=== PATIENT | female | born 1980 | race Hispanic/Latino ===

== ENCOUNTER 2016-08-06 05:26 | Day surgery (SDC) | payer OTHER ==
[~2016-08-06] VITALS: Ht 157.5 cm; Wt 98.5 kg
[2016-08-06] VITALS (11 sets, daily range): BP systolic 110–125; BP diastolic 54–75; PULSE 69–89; RESP 14–22; O2SAT 97–100
[2016-08-06] MEDS: Lactated Ringer's 1,000 ML IV SCH ×5 (05:00→17:57)
[~2016-08-06 05:26] MED LIST: CeFAZolin Inj 2 GM in IV Premix 1 EACH IV SCH; DESO1TAB54 PO; LEVO25TA5 PO
[2016-08-06] MEDS ORDERED: Lidocaine PF 1% 30 mL Inj ONE (05:27)
[2016-08-06] MEDS ORDERED: Propofol 10,000 mCg/mL 20 mL Inj ONE (05:27)
[2016-08-06] MEDS ORDERED: Rocuronium 10 mg/mL 5 mL Inj ONE (05:27)
[2016-08-06] MEDS ORDERED: Morphine PF 1 mg/mL 10 mL Inj ONE (05:27)
[2016-08-06] MEDS ORDERED: Succinylcholine Chloride 20 mg/mL 5 mL Inj ONE (05:27)
[2016-08-06] MEDS ORDERED: fentaNYL-PF 50 mCg/mL 2 mL Inj ONE (05:27)
[2016-08-06] MEDS ORDERED: Dexamethasone 4 mg/mL Inj ONE (05:27)
[2016-08-06] MEDS ORDERED: MetoCLOpramide 5 mg/mL 2 mL Inj ONE (05:27)
[2016-08-06] MEDS ORDERED: Ondansetron 2 mg/mL 2 mL Inj ONE (05:27)
[2016-08-06] MEDS ORDERED: IBUP200C11 PO (05:42)
[2016-08-06] MEDS ORDERED: CeFAZolin Inj 2 gm / 50mL D5W IV ONE (05:44)
[2016-08-06 06:40] LABS: BASOPHILS % (AUTO) 0.7 % (0-3); EOSINOPHILS % (AUTO) 2.6 % (0-5); MONOCYTES % (AUTO) 10.1 % (4-12); Mean Corpuscular Hemoglobin 28.5 pg (27.0-35.0); Mean Corpuscular Volume 86.3 fL (81-100); NEUTROPHILS % (AUTO) 57.1 % (40-74); Platelet Count 426 bil/L (150-400)
--- NOTE | 2016-08-06 07:16 | PCM.HPANE ---
Patient Data Date of Service: Aug 06, 2016 Surgeon Admitting Provider: Attending Provider:Jes Kaba MD Primary Care Physician:Fina Luke Other Provider:Aliyah Rao Anesthesia Reason for Visit Dysmenorrhea Ht/WT & BMI Height (Feet): 5 Height (Inches): 2.00 Weight (Kilograms): 98.883 Body Mass Index 40.00 Allergies Coded Allergies: No Known Allergies (Verified , 04/05/04) Uncoded Allergies: No Known Allergies (Allergy, Severe, 08/25/04) NKDA (Allergy, Unknown, 03/30/04) Past Anesthesia History Anesthesia History: Denies:: Anesthesia Reactions, Fam Anesthesia Reaction, Fam Malignant Hypertherm, Malignant Hyperthermia Diabetes History Hx Diabetes?: No MRSA MRSA: No Medications Hypertension Medication: No Home Meds Incl Beta Kami: No Reported Medications Ibuprofen (Advil)200 Mg [id number] Mg PO 08/06/16 Desogestrel-Ethinyl Estradiol ( Day Tablet)0.15 Mg-0.03 Mg Tablet1 Tab PO DAILY #112 08/02/16 Levothyroxine 25 Mcg [id number] Mg PO DAILY #30 08/02/16 History History of ENT Problems?: No HEENT History: Denies:: Glaucoma Hearing Problem Denture Type: Partial- Upper Teeth Condition: Tooth Decay Hx of Heart Problems?: No Cardiovascular History: Denies:: Chest Pain Hx of Respiratory Problem?: No Respiratory History: Denies:: Asthma COPD Chest Surgery Cough Dyspnea Emphysema Hemoptysis Oxygen Administration Pneumonia Pulmonary Embolism Tuberculosis Use of C-PAP Machine Use of Inhalers / NEBS Hx Neurologic Problems?: Yes Neurological History: Positive for:: Peripheral Neuropathy Denies:: CVA Seizures TIA Other Neurological Pertinent: LLE radiculopathy, bilateral feet neuropathy Hx of GI Problems?: Yes Gastrointestinal History: Positive for:: Gall Bladder Disease (shira 2002) Denies:: Gastroesphageal Reflux Hx of Problems?: Yes Female Hx: Denies:: Currently Skin History: Denies:: History Skin Disorders? Pressure Ulcers Hx Musculoskeletal Problems?: Yes Musculoskeletal History: Positive for:: Back Injury (SCIATICA) Hx Surgeries?: Yes (SHIRA) Other History: Positive for:: Thyroid Disease (hypothyroid) Denies:: Cancer History Blood Transfusions: Positive for:: Accept Blood Products? Denies:: Blood Transfusions Hx Diabetes: No Hx Alcohol Use: Yes (occ)Alcoholic Drinks Per Day: occHx Substance Use: No Smoking Status: Current Some Day Smoker Have You Smoked inLast 12 mo: YesApprox How Many Cigarettes/day: [id number] Stop/Bang Treated for Sleep Apnea?: No Do You Have a CPAP Machine?: No S-Snoring: Do You Snore Loudly: No T-Tired: feel tired, fatigued: Yes O-Obsered: Observed not breath: No P-Blood Pressure: treated: No B- Body Mass Index > 35 kg/m2: Yes A- Age over 50: No N- Neck Large Circumference: Yes G- Gender Male: No JOON Total Score: 3 JOON Risk Assessment: Low Risk, <3 Yes Risk Assessment Category Category 1A: Patient has history of documented sleep apnea, and HAS NOT received any narcotic, sedative or anesthesia administration during this stay. Category 1B: Patient has history of documented sleep apnea, and HAS received any narcotic , sedative or anesthesia administration during this stay Category 2: Patient has SUSPECTED Obstructive Sleep Apnea, and HAS received any narcotic , sedative or anesthesia administration during this stay. Category 3: Patient has SUSPECTED Obstructive Sleep Apnea and HAS NOT received narcotic, sedative or anesthesia administration during this stay. Category 4: Outpatient in Procedural Areas with known sleep apnea or who screen positive for High Risk via the STOP/BANG questionnaire. Exam Exam Vital Signs Vital Signs Date Time Temp Pulse Resp B/P Pulse Ox O2 Delivery O2 Flow Rate FiO2 08/06/16 06:20 36.0 69 18 113/57 98 Room Air General Appearance: Alert, Oriented X3, Cooperative, No Acute Distress HEENT/AIRWAY: MP 3, Neck Movement (from, short thick), Mouth Opening (3), Other (TMD<3) Lungs: Normal Air Movement Heart: Exam Unremarkable, Regular Rate/Rhythm, Normal S1, Normal S2, No Murmurs /Rubs/Gallops Meds/Labs/Diagnostics Admission Meds Current Medications Lactated Ringer's (Lr) 1,000 ml @ 120 mls/hr Q8H20M IV Last administered on t 05:33; Start 08/06/16 at 05:00; Stop 08/06/16 at 13:19 Labs Test 08/06/16 06:15 White Blood Count 6.1th/mm3 (3.8-10.1) Red Blood Count 4.17mil/mm3 (3.90-5.20) Hemoglobin 11.9g/dL (12.0-15.6) Hematocrit 36.0% (35.0-46.0) Mean Corpuscular Volume 86.3fL (81-100) Mean Corpuscular Hemoglobin 28.5pg (27.0-35.0) Mean Corpuscular Hemoglobin Concent 33.1% (32.0-37.0) Red Cell Distribution Width 13.1% (12.3-15.4) Platelet Count 426bil/L (150-400) Neutrophils (%) (Auto) 57.1% (40-74) Lymphocytes (%) (Auto) 29.2% (14-46) Monocytes (%) (Auto) 10.1% (4-12) Eosinophils (%) (Auto) 2.6% (0-5) Basophils (%) (Auto) 0.7% (0-3) Plan Impression Patient chart reviewed, patient interviewed and anesthestic plan with risks, benefits, and alternatives discussed, and informed consent obtained. ASA Physical Status: ASA2 Mod Systemic Disease Anesthetic Plan: GA Bene/Risks/Altern/Consents: Yes HP Complete Prior to Induction: Yes Bruce Dickey MD Aug 06, 2016 07:16
[2016-08-06] MEDS ORDERED: Bupivacaine-MPF 0.5% W/EPI 30 mL Inj INFILTRATE ONE (08:24)
[2016-08-06] MEDS ORDERED: Lactated Ringer's 1,000 ML IV SCH (09:08)
[2016-08-06] MEDS ORDERED: Lactated Ringer's 500 ML IV PRN (09:08)
[2016-08-06] MEDS ORDERED: Dexamethasone 4 mg/mL Inj IVPUSH PRN (09:10)
[2016-08-06] MEDS ORDERED: HYDROmorphone 1 mg/mL Inj IVPUSH PRN (09:10)
[2016-08-06] MEDS ORDERED: Ondansetron 2 mg/mL 2 mL Inj IVPUSH PRN ×2 (09:10→11:00)
[2016-08-06] MEDS ORDERED: fentaNYL-PF 50 mCg/mL 2 mL Inj IVPUSH PRN (09:10)
[2016-08-06] MEDS ORDERED: MetoCLOpramide 5 mg/mL 2 mL Inj IVPUSH PRN ×2 (09:10→11:00)
[2016-08-06] MEDS ORDERED: Phenylephrine 10,000 mCg/mL Inj IVPUSH PRN (09:10)
[2016-08-06] MEDS ORDERED: EPHEDrine Sulfate 50 mg/mL Inj IVPUSH PRN (09:10)
[2016-08-06] MEDS ORDERED: Senna-Docusate 8.6-50 mg Tablet PO PRN (11:00)
[2016-08-06] MEDS ORDERED: Alum-Mag Hydrox-Simeth 30 mL Suspension PO PRN (11:00)
[2016-08-06] MEDS ORDERED: oxyCODONE-Acetamin 5-325 mg Tablet PO PRN (11:00)
--- NOTE | 2016-08-06 11:17 | PCM.DIGYN ---
Surgical Discharge Instruction Dates of Hospitalization Date of Hospital Admission Providers Admitting Physician: Primary Care Physician: Fina Luke Attending Physician: Jes Kaba MD Diet Discharge Diet: No restrictions Activity Discharge Activity-General: Balance rest and activity, No lifting >10 pounds for 4-6 weeks, No driving while taking narcotic, Other (Nothing in the vagina for 8 weeks ) Dressing and Incisional Care Hygiene: May shower, NO bathtub, hot tub or whirlpool Additional Instructions Discharge Instructions Your surgery went well. Please call with any signs or symptoms of infection including severe pain, temperature greater than 100.5 degrees, heavy vaginal bleeding or malodorous discharge. Follow Up Plan Follow-up appointment: Weeks (2) Call your provider for: Fever, Chills, Shortness of breath, Heavy vaginal bleeding, Increasing pain Jes Kaba MD Aug 06, 2016 11:17
--- NOTE | 2016-08-06 12:00 | OP ---
[address] [address] OPERATIVE REPORT PATIENT: AMY DEVLIN : 1980 MR#: [id number] ADMIT: 08/06/2016 JOB ID: [id number] DATE OF SURGERY: 08/06/2016 PREOPERATIVE DIAGNOSIS(ES): Dysmenorrhea. POSTOPERATIVE DIAGNOSIS(ES): Dysmenorrhea. PROCEDURE PERFORMED: 1. Total laparoscopic hysterectomy. 2. Bilateral salpingectomy. 3. Cystoscopy. SURGEON: Jes Kaba MD COTTON TIER: Rian Brasher MD, who was necessary for safe completion of the case. ANESTHESIA: General endotracheal anesthesia. ESTIMATED BLOOD LOSS: 150 cc. FLUID REPLACEMENT: 1000 cc of crystalloid. URINE OUTPUT: 600 cc of clear yellow urine. FINDINGS: An 8-week size uterus. Normal ovaries and fallopian tubes bilaterally. No evidence of endometriosis. Normal bladder on cystoscopy, with strong bilateral ureteral jets. COMPLICATIONS: None apparent. INDICATIONS: This is a 36-year-old, -0-0-3 female, who presented to my clinic complaining of heavy periods and dysmenorrhea. She strongly desired definitive surgical management. Risks, benefits, and alternatives to hysterectomy with bilateral salpingectomy, cauterization of endometriosis and cystoscopy was discussed. Risks, benefits and alternatives were discussed with her, and she elected to proceed. PROCEDURE: The patient was taken to the operating room. She was placed in dorsal lithotomy position, prepped and draped in the usual sterile fashion for her surgery. A bivalve speculum was placed into the uterus and the cervix was grasped with an Allis clamp. Her uterus was sounded to 8 cm and a medium-sized V Care uterine manipulator was then placed and insufflated, and the Ruffin catheter was then inserted on the field. Attention was then turned abdominally after removal of the speculum and Allis clamp. After injection with local anesthetic infraumbilically, a 5 mm incision was made in the line of her previous infraumbilical port site from her laparoscopic cholecystectomy in the remote past. The Veress needle was inserted through the midline and a saline drop test confirmed appropriate placement. The abdomen was then insufflated with appropriately rising CO2 pressures. The laparoscope was then placed under direct visualization. Next, a 2nd port was placed in the left lower quadrant after injection with local anesthetic. A 5 mm incision was made and a 5 mm port was then placed under direct visualization. The same process was completed over on the right side in the right lower quadrant. The patient was placed in Trendelenburg positioning and the uterus was visualized. The patient was noted to be obese with redundant bowels, so a fourth 5 mm port was placed to aid in bowel retraction. This was placed in the right upper quadrant. After injection of local anesthetic, a 5 mm port was placed under direct visualization, at which point, a liver retractor was then used to retract the bowel away from the area of operation. An intra-abdominal survey revealed no evidence of any endometriosis. Her ovaries were normal in appearance. Her liver was also normal and there was no evidence of any entrance injuries. Using the Thunderbeat cautery, the left fallopian tube was elevated. This was transected along the mesosalpinx to the level of the uterine cornua. This was then at the level of the uterine cornua and removed from the abdomen. This was then sent to Pathology. The utero-ovarian ligament was then cauterized and transected, and the round ligament was cauterized and transected until the broad ligament was reached. The broad ligament was to anterior and posterior sheaths, and they were brought out separately in order to skeletonize the uterine arteries. Once the uterine arteries were skeletonized on the right side, the Thunderbeat cautery was used to cauterize and transect the uterine arteries. There was noted to be a small amount of bleeding on the right side from this, and this was rendered hemostatic using the Thunderbeat. The anterior leaf of the broad ligament was then and the anterior uterine serosa was brought down to create a bladder flap. This was carried across the anterior portion of the uterine serosa towards the left side. Next, attention was turned to the left side, at which point the left fallopian tube was elevated and the mesosalpinx was undermined using a Thunderbeat cautery. This was brought to the level of the uterine cornua. This was then transected across and the left fallopian tube was removed from the abdominal cavity. Sent to Pathology. The utero-ovarian ligament was then cauterized and transected, as was the round ligament. The anterior and posterior sheaths of the broad ligament were then and brought down separately to the level of the uterine isthmus and the uterine arteries were skeletonized. The left uterine artery was then cauterized and transected, and the descending branch of this was also brought down using the Thunderbeat cautery to allow for appropriate visualization of the vaginal cuff without any vasculature present. The vaginal cuff was well visualized, and using the Thunderbeat starting posteriorly, entrance was made using the cautery until the green cup was identified. This was then followed around circumferentially around the cervix, completely the uterus and cervix from the vaginal cuff. The uterus and cervix was then removed en bloc from the vagina. A sponge and glove was placed in the vagina to allow for appropriate pneumoperitoneum. There was a little bit of oozing along the vaginal cuff and this was cauterized using the Thunderbeat. The V-Loc suture was then introduced into the abdominal cavity, inserting at the left apex, sewing towards the right side. The vaginal cuff was closed in a running nonlocking layer of the V-Loc suture until the right apex of the vaginal cuff was reached. This was then brought back towards the midline three stitches to prevent any unraveling or dehiscence, and the suture was then cut at the tissue line and removed from the abdominal cavity. Prior to closure of the vaginal cuff, the bladder was brought down bluntly to allow for a better plane between the anterior vaginal cuff and the bladder flap. There was noted to be some oozing along this area where it was bluntly dissected, and so FloSeal was then placed along the vaginal cuff, and good hemostasis was noted following this. The pneumoperitoneum was released from the abdomen and the cuff was again reinspected without tension from the pneumoperitoneum, and hemostasis was again noted. The pneumoperitoneum was then fully released from the abdomen. The patient was given three deep breaths and the ports were then removed. A cystoscopy was completed which showed strong bilateral ureteral jets and no evidence of any bladder injury along the entirety of the bladder and along the bladder dome. The skin was then reapproximated using 4-0 Vicryl and along the four 5 mm port sites, and Dermabond was then placed on top of these. The patient tolerated this procedure well. Vaginal packing was placed with Premarin cream. She recovered in the PACU. All sponge, needle, and instrument counts were correct. RUDDY
--- NOTE | 2016-08-06 12:31 | PCM.ANEP1 ---
Post Anesthesia PACU Phase 1 Assessment Date of Service: Aug 06, 2016 Vital Signs Vital Signs Date Time Temp Pulse Resp B/P Pulse Ox O2 Delivery O2 Flow Rate FiO2 08/06/16 11:58 36.9 81 16 110/73 98 Room Air 08/06/16 11:30 76 14 125/64 100 Room Air 08/06/16 11:15 36.7 85 17 117/59 100 Room Air 08/06/16 11:10 87 19 124/60 100 Room Air 08/06/16 11:05 86 20 115/60 100 Room Air 08/06/16 11:00 84 21 117/58 100 Room Air 08/06/16 10:57 22 100 08/06/16 10:55 36.5 89 21 114/54 100 Simple Mask 8 08/06/16 06:20 36.0 69 18 113/57 98 Room Air Anesthetic Administered: GA Level of Alertness: Awake, talking LIND's with Equal Strength: Yes Pain: No Pain Scale Score: 0 Nausea or Vomiting: No CV Function & Hydration Stable: Yes Airway Device: none in PACU Oxygen Delivery: Simple Mask Lungs: Normal Air Movement Dermatome Level: Full Sensation Summary 08/06/16 11:58 36.9 81 16 110/73 98 Room Air PACU Phase 2 Assessment Complications: No Follow up Care: No Patient Instructions Provided: Yes Bruce Dickey MD Aug 06, 2016 12:31
[2016-08-06] MEDS: Acetaminophen IV 1,000 MG in IV Premix 1 EACH IV PRN ×2 (12:42→21:39)
[2016-08-06] MEDS: Senna-Docusate 8.6-50 mg Tablet PO SCH (20:02)
[2016-08-06] MEDS ORDERED: 0.9% Sodium Chloride 250 ML ONE (21:23)
[2016-08-07 01:00] VITALS: BP 110/65; PULSE 85; RESP 18; O2SAT 98
[2016-08-07] MEDS: Lactated Ringer's 1,000 ML IV SCH (02:55)
[2016-08-07 05:23] LABS: BASOPHILS % (AUTO) 0.2 % (0-3); EOSINOPHILS % (AUTO) 0.1 % (0-5); MONOCYTES % (AUTO) 9.1 % (4-12); Mean Corpuscular Hemoglobin 28.8 pg (27.0-35.0); Mean Corpuscular Volume 88.3 fL (81-100); NEUTROPHILS % (AUTO) 56.8 % (40-74); Platelet Count 419 bil/L (150-400)
[2016-08-07 05:53] VITALS: BP 116/73; PULSE 82; RESP 18; O2SAT 99
[2016-08-07] MEDS: Senna-Docusate 8.6-50 mg Tablet PO SCH (08:30)
--- NOTE | 2016-08-07 08:55 | DIS ---
[address] [address] DISCHARGE SUMMARY PATIENT: AMY DEVLIN : 1980 MR#: [id number] ADMIT: 08/06/2016 JOB ID: [id number] DIS: 08/07/2016 ADMISSION DIAGNOSIS: Dysmenorrhea. DISCHARGE DIAGNOSIS: Dysmenorrhea. PROCEDURE PERFORMED: 1. Total laparoscopic hysterectomy with bilateral salpingectomy. 2. Cystoscopy. REASON FOR ADMISSION: This is a 36-year-old, -0-0-3 female, who presents to our clinic complaining of pelvic pain and heavy vaginal bleeding with menses. She desired definitive surgical management and discussion regarding her treatment options was reviewed. After discussing her options, she decided to proceed with a laparoscopic hysterectomy, bilateral salpingectomy and cystoscopy. She presented on the 6th to undergo the above-stated procedure. HOSPITAL COURSE: The patient was admitted and underwent the laparoscopic hysterectomy. Please see the operative report for full details. The surgery was uncomplicated. She was kept for observation overnight. By postoperative day #1, her Ruffin catheter was removed. She was voiding and ambulating well on her own. She is tolerating regular diet without any nausea or vomiting. Her pain was well controlled. She had a vaginal packing that was placed, and it was removed on the morning of postop day one, with minimal vaginal bleeding noted, and she was meeting all postoperative goals, and passing flatus. At this point in time, deemed stable for discharge. PHYSICAL EXAMINATION ON THE DAY OF DISCHARGE: Temperature is 36.8, her pulse is 82, respiratory rate 18, blood pressure is 116/73, pulse ox is 99% on room air. In general, she is awake, alert, oriented, no acute distress. Her abdomen is soft, appropriately tender, nondistended. Her incisions are clean, dry, and intact, without any erythema or induration. Her extremities show no tenderness or edema. LABORATORY DATA: On the day of admission, her white count was 6.1, hemoglobin 11.9, platelets 426. By postoperative day #1, her white count was 8.1, hemoglobin was 10.8, platelets were 419. INSTRUCTIONS AT DISCHARGE: The patient is advised to remain on pelvic rest for six weeks including no tampons, douching, intercourse. She was asked to call with any signs or symptoms of infection including fever greater than 100.5 degrees, severe pain, malodorous vaginal discharge or bleeding greater than a pad per hour. MEDICATIONS ON DISCHARGE: Included: 1. Percocet 5/325, 1-2 tabs p.o. q.4 h. p.r.n. pain, dispensed #30. 2. Ibuprofen 800 mg p.o. q.8 h. p.r.n. pain. She had been given these in the clinic prior to her surgery, and she had picked these up prior to admission. 3. She was asked to continue her Synthroid as prescribed. All questions and concerns of the patient were answered. She was asked to return in two weeks for routine postoperative check. She is deemed stable for discharge on postoperative day #1. RUDDY
--- NOTE | 2016-08-08 13:50 | PATH ---
SURGICAL PATHOLOGY Attending Physician:Jes Kaba, CASE STATUS: Signed Out PATIENT NAME: AMY DEVLIN PID: [id number] : 1980 DATE COLLECTED:08/06/2016 23:17 SPECIMEN: 1: Fallopian Tube, Biopsy 2: Fallopian Tube, Biopsy 3: Uterus +/- tubes/ovaries, except neoplastic, prolapse CLINICAL HISTORY: DYSMENORRHEA 1). RIGHT FALLOPIAN TUBE 2). LEFT FALLOPIAN TUBE 3). UTERUS FINAL DIAGNOSIS: 1. 2.BILATERAL FALLOPIAN TUBES: NO SIGNIFICANT PATHOLOGIC CHANGE. 3.UTERUS: INACTIVE ENDOMETRIUM WITH CYSTIC CHANGE, NEGATIVE FOR ATYPIA. MULTIFOCAL ADENOMYOSIS. ICD10 N80.0 GROSS DESCRIPTION: The specimens are received in formalin, labeled with the patient's name, and sublabeled as the following: (1) right fallopian tube; (2) left fallopian tube; (3) uterus. (1) The specimen consists of a fimbriated fallopian tube (length-5.6 cm, diameter-0.4 cm). The serosa is churchill-hook smooth and shiny. The lumen is hook and unremarkable. No nodules, masses or lesions are identified. Section code: (1A) fallopian tube, serially sectioned, technical sales representatives; (1B) fimbria, bivalved, entirely submitted. (2) The specimen consists of a fimbriated fallopian tube (length-4.5 cm, diameter-0.4 cm). The serosa is churchill-hook smooth and shiny. The lumen is hook and unremarkable. No nodules, masses or lesions are identified. Section code: (2A) fallopian tube, serially sectioned, technical sales representatives; (2B) fimbria, bivalved, entirely submitted. (3) The specimen consists of a uterus (54 g, 3.4 cm AP, 8.1 cm SI, 4.8 cm ML). The ovaries and fallopian tubes are absent. The cervix (2.5 x 2.5 cm) has a transverse os and patent endocervical canal. The endometrium (average thickness-0.1 cm) is hook-pink smooth and flat. The myometrium (thickness-1.4 cm) is hook-white and unremarkable. The serosa is hook-zarate smooth and shiny. Section code: (3A) anterior cervix; (3B) posterior cervix; (3C, 3D) anterior endomyometrium; (3E, 3F) posterior endomyometrium. 08/07/16 JM MICRO DESCRIPTION: See diagnosis. ICD-9 CODES: CPT CODES: 1: 94135 2: 84442 3: 45424 Electronically Signed Out Nj Espinosa MD [facility] Pathology [facility] [address], [place] [address] Technical component performed at [facility], [facility] [address], [place], [address]
== END 2016-08-07 11:00 | disposition home or self-care (01) ==
LOC: SAS 05:26 → OSC 11:50 → SAS 08-07 11:00
PROVIDERS: ATTEND Obstetrics & Gynecology
DX: N80.0 Endometriosis of uterus (principal); N94.6 Dysmenorrhea, unspecified; G62.9 Polyneuropathy, unspecified; M54.30 Sciatica, unspecified side; F17.210 Nicotine dependence, cigarettes, uncomplicated
CPT/HCPCS: 36415; 58571; 85025; J0131; J0690; J7050; J7120